=== PATIENT | male | born 2000 | race Caucasian/White ===

== ENCOUNTER 2022-10-06 14:01 | Emergency (ER) | payer SELFPAY | END 2022-10-06 16:27 | disposition home or self-care (01) | LOC: CSHERS 14:01 | DX: K04.7 Periapical abscess without sinus (principal) | CPT/HCPCS: 99282 ==

== ENCOUNTER 2022-12-15 19:17 | Emergency (ER) | payer SELFPAY ==
[2022-12-16] MEDS ORDERED: Amoxicillin/Potassium Clav 875 MG TAB ONE (00:48)
[2022-12-16] MEDS ORDERED: Dexamethasone 4 MG TAB ONE (00:49)
== END 2022-12-16 00:53 | disposition home or self-care (01) ==
LOC: CSHERS 19:17
DX: K11.20 Sialoadenitis, unspecified (principal)
CPT/HCPCS: 99283; J8540

== ENCOUNTER 2023-02-23 17:22 | Emergency (ER) | payer SELFPAY ==
[2023-02-23 21:08] LABS: #Monocytes 0.6 10x3/uL (0.0-1.1); #Neutrophils 4.6 10x3/uL (1.5-8.4); %Basophils 0.6 % (0.0-2.0); %Eosinophils 0.3 % (0.0-6.0); %Lymphocytes 25.5 % (18.0-47.0); %Neutrophils 64.3 % (40.0-75.0); Mean Corpuscular HGB CONC 35.9 g/dL (32.0-36.0); Mean Corpuscular Hemoglobin 33.1 pg (27.0-33.0); Mean Corpuscular Volume 92.4 fl (81.2-95.1); Mean Platelet Volume 9.5 fl (7.4-10.4); Platelet Count 266 10x3/uL (150-450); RBC Distribution Width 12.9 % (11.5-14.5); Red Blood Cell (RBC) Count 5.13 10x6/uL (4.32-5.72); White Blood Cell (WBC) Count 7.1 10x3/uL (3.5-10.5)
[2023-02-23 21:27] LABS: ALT (SGPT) 15 U/L (8-55); AST (SGOT) 18 U/L (5-34); Albumin 4.9 g/dL (3.5-5.0); Alkaline Phosphatase 84 U/L (40-110); Anion Gap 16 mmol/L (10-20); BUN (Urea Nitrogen) 7 mg/dL (8.9-20.6); Bilirubin, Total 0.9 mg/dL (0.2-1.2); Calc. Creatinine Clearance 0 mL/min (70-130); Calcium 9.7 mg/dL (7.8-10.44); Carbon Dioxide 23 mmol/L (22-29); Chloride 106 mmol/L (98-107); Estimated GFR 123; Globulin 2.5 g/dL (2.4-3.5); Glucose 100 mg/dL (70-105); Potassium 4.1 mmol/L (3.5-5.1); Protein, Total 7.4 g/dL (6.0-8.3); Sodium 141 mmol/L (136-145)
[2023-02-23 21:37] LABS: MONO NEGATIVE CONTROL ZONE White (Negative) (White); Mononucleosis NEGATIVE (NEGATIVE)
[2023-02-23 21:38] LABS: MONO POSITIVE CONTROL Pink Line (Positive) (PINK/RED)
== END 2023-02-23 23:05 | disposition home or self-care (01) ==
LOC: CSHERS 17:22
DX: M94.0 Chondrocostal junction syndrome [Tietze] (principal)
CPT/HCPCS: 71046; 74177; 80053; 85025; 85379; 86308; 93005

== ENCOUNTER 2023-03-10 02:50 | Emergency (ER) | payer SELFPAY ==
[2023-03-10] MEDS ORDERED: Ketorolac Tromethamine 30 MG/ML VIAL ONE (03:31)
[2023-03-10] MEDS ORDERED: Orphenadrine Citrate 60 MG/2 ML VIAL IM SCH (03:45)
== END 2023-03-10 04:33 | disposition home or self-care (01) ==
LOC: CSHERS 02:50
DX: R07.9 Chest pain, unspecified (principal); R09.1 Pleurisy
CPT/HCPCS: 71045; 96372; J1885; J2360

== ENCOUNTER 2023-03-19 04:09 | Emergency (ER) | payer SELFPAY | END 2023-03-19 04:32 | disposition home or self-care (01) | LOC: CSHERS 04:09 | DX: R07.89 Other chest pain (principal); F17.290 Nicotine dependence, other tobacco product, uncomplicated | CPT/HCPCS: 99283 ==